=== PATIENT | male | born 1990 | race African-American/Black ===

== ENCOUNTER 2023-09-17 11:13 | Emergency (ER) | payer OTHER ==
[~2023-09-17] VITALS: Ht 175.3 cm; Wt 68.2 kg
[2023-09-17] MEDS ORDERED: DOXY-354 PO (13:37)
[2023-09-17 14:24] VITALS: BP 121/75; PULSE 66; RESP 18; TEMP 98.6
== END 2023-09-17 14:30 | disposition home or self-care (01) ==
LOC: EMS 11:16
DX: L02.416 Cutaneous abscess of left lower limb (principal)
CPT/HCPCS: 99283; Z7502

== ENCOUNTER 2023-10-04 17:29 | Emergency (ER) | payer OTHER ==
[~2023-10-04] VITALS: Ht 172.7 cm; Wt 83.0 kg
[~2023-10-04 17:29] MED LIST: DOXY-354 PO
[2023-10-04 17:40] VITALS: TEMP 98.1
[2023-10-04 18:52] VITALS: BP 110/60; PULSE 64; RESP 16
== END 2023-10-04 20:11 | disposition home or self-care (01) ==
LOC: EMS 17:31
DX: S80.922D Unspecified superficial injury of left lower leg, subsequent encounter (principal); X58.XXXD Exposure to other specified factors, subsequent encounter
CPT/HCPCS: 99282; Z7502